=== PATIENT | female | born 1985 | race Asian ===

== ENCOUNTER 2017-09-08 09:58 | Inpatient (IN) | payer SELFPAY ==
[~2017-09-08] VITALS: Ht 165.1 cm; Wt 93.9 kg
[2017-09-10] MEDS ORDERED: LACTATED RINGERS 500 ML IV ONE (01:10)
[2017-09-10] MEDS ORDERED: PROMETHAZINE 25 MG/ML VIAL IVP PRN (01:10)
[2017-09-10] MEDS ORDERED: NALBUPHINE 10 MG/ML AMP IVP PRN (01:10)
[2017-09-10] MEDS ORDERED: OXYTOCIN 10 UNITS/ML VIAL IM SCH (01:10)
[2017-09-10] MEDS ORDERED: OXYTOCIN 20 UNITS in LACTATED RINGERS 1,000 ML IV SCH (01:15)
[2017-09-10] MEDS ORDERED: MISOPROSTOL 25 MCG TAB VG PRN (01:15)
[2017-09-10 01:24] VITALS: BP 116/62
[2017-09-10 01:35] LABS: APPEARANCE,URINE CLEAR (CLEAR); BILIRUBIN,URINE NEGATIVE (NEGATIVE); BLOOD, URINE TRACE-I (NEGATIVE); COLOR,URINE YELLOW (YELLOW); LEUKOCYTE ESTERASE ,URINE NEGATIVE (NEGATIVE); NITRITE, URINE NEGATIVE (NEGATIVE); PH,URINE 6.5 (5.0-9.0); UGLUCOSE NEGATIVE (NEGATIVE)
[2017-09-10 01:37] LABS: BASOPHILS % (AUTO) 0.2 % (0.0-2.0); EOSINOPHILS # (AUTO) 0.1 K/uL (0-0.4); EOSINOPHILS % (AUTO) 1.3 % (0.0-4.0); HEMOGLOBIN 11.6 g/dL (12.0-16.0); LYMPHOCYTES # (AUTO) 2.1 K/uL (2.5-16.5); LYMPHOCYTES % (AUTO) 24.5 % (20.5-51.1); MEAN CORPUSCULAR HEMOGLOBIN 32 pg (27-31); MEAN CORPUSCULAR HGB CONC 34 g/dL (33-37); MEAN CORPUSCULAR VOLUME 93.9 fL (80-94); MONOCYTES # (AUTO) 0.5 K/uL (0.8-1.0); MONOCYTES % (AUTO) 5.9 % (1.7-9.3); NEUTROPHILS % (AUTO) 68.1 % (42.2-75.2); PLATELET COUNT (AUTO) 193 K/uL (140-450); RED BLOOD CELL COUNT(AUTO) 3.63 MIL/uL (4.20-5.40); RED CELL DISTRIBUTION WIDTH 18.6 % (11.6-13.7); WHITE BLOOD COUNT (AUTO) 8.7 K/uL (4.8-10.8)
[2017-09-10] MEDS: LACTATED RINGERS 1,000 ML IV SCH ×3 (02:11→14:33)
[2017-09-10] MEDS ORDERED: MISOPROSTOL 25 MCG TAB ONE (02:18)
[2017-09-10 02:29] LABS: RBC,URINE 0-5 (RARE) /HPF (0-5); WBC,URINE 0-5 (RARE) /HPF (0-5)
[2017-09-10] MEDS ORDERED: PREN-546 PO (02:55)
[2017-09-10] MEDS ORDERED: OXYTOCIN 20 UNITS/LR PREMIX 1,000 ML IV ONE (06:13)
--- NOTE | 2017-09-10 08:12 | NUR ---
PATIENT HAS BEEN SCREENED AND CATEGORIZED LOW NUTRITION RISK. PATIENT WILL BE SEEN WITHIN 7 DAYS OF ADMISSION. 09/16/[address]
[2017-09-10 13:43] LABS: RAPID PLASMA REAGIN NON-REACTIVE (Non Reactiv)
[2017-09-10] MEDS ORDERED: OXYTOCIN 10 UNITS/ML VIAL ONE (14:58)
[2017-09-10] MEDS ORDERED: ROPIVACAINE 0.2%/NS PREMIX 250 ML EPI ONE (15:18)
[2017-09-10] MEDS ORDERED: oxyCODONE/APAP 5/325 MG 1 TAB TAB PO PRN (16:30)
[2017-09-10] MEDS ORDERED: HYDROcodone/APAP 5/325 MG 1 TAB TAB PO PRN (16:30)
[2017-09-10] MEDS ORDERED: MEASLES, MUMPS, AND RUBELLA 1 VIAL SQVAC PRN (16:30)
[2017-09-10] MEDS ORDERED: TEMAZEPAM 15 MG CAP PO PRN (16:30)
[2017-09-10] MEDS ORDERED: METHYLERGONOVINE 0.2 MG/ML AMP IM PRN (16:30)
[2017-09-10] MEDS ORDERED: OXYTOCIN 10 UNITS/ML VIAL IM PRN (16:30)
[2017-09-10] MEDS ORDERED: BENZOCAINE/MENTHOL 20%-0.5% 60 GM CAN TP PRN (16:30)
[2017-09-10] MEDS ORDERED: DOCUSATE SOD/SENNA 50/8.6 MG 1 TAB PO SCH (21:00)
[2017-09-11] MEDS: IBUPROFEN 800 MG TAB PO PRN ×2 (03:42→13:57)
[2017-09-11 06:36] LABS: HEMATOCRIT 29.8 % (36-48); HEMOGLOBIN 10.4 g/dL (12.0-16.0)
[2017-09-12] MEDS: IBUPROFEN 800 MG TAB PO PRN (01:25)
== END 2017-09-12 14:50 | disposition home or self-care (01) | DRG 775 ==
LOC: MLD 09-10 00:33 → MFCC 09-10 18:30
PROVIDERS: ADMIT Obstetrics & Gynecology; ATTEND Obstetrics & Gynecology
PROC: 10E0XZZ Delivery of Products of Conception, External Approach (ICD-10-PCS; principal; 2017-09-10)
PROC: 10907ZC Drainage of Amniotic Fluid, Therapeutic from Products of Conception, Via Natural or Artificial Opening (ICD-10-PCS; 2017-09-10)
PROC: 3E0P7VZ Introduction of Hormone into Female Reproductive, Via Natural or Artificial Opening (ICD-10-PCS; 2017-09-10)
PROC: 00HU33Z Insertion of Infusion Device into Spinal Canal, Percutaneous Approach (ICD-10-PCS; 2017-09-10)
PROC: 3E0R3BZ Introduction of Anesthetic Agent into Spinal Canal, Percutaneous Approach (ICD-10-PCS; 2017-09-10)
DX: O48.0 Post-term pregnancy (principal); Z3A.40 40 weeks gestation of pregnancy; Z37.0 Single live birth; Z28.21 Immunization not carried out because of patient refusal; Z88.0 Allergy status to penicillin
CPT/HCPCS: 36415; 51702; 59200; 59409; 81001; 85018; 85025; 86592; 86886; 86900; 86901; J2590; J2795; J7120